=== PATIENT | male | born 2000 | race Hispanic/Latino ===

== ENCOUNTER 2022-03-03 14:38 | Emergency (ER) | payer OTHER, SELFPAY ==
[~2022-03-03 14:38] MED LIST: Iopamidol 370 76% 100 ML VIAL ONE
[2022-03-03] MEDS ORDERED: Ondansetron PF 4 MG/2 ML Vial ONE (14:59)
[2022-03-03] MEDS ORDERED: Morphine 4 MG/ML VIAL ONE (14:59)
[2022-03-03 15:04] LABS: #Basophils 0.1 thou/uL (0.0-0.2); #Eosinphils 0.2 thou/uL (0.0-0.7); #Lymphocytes 2.1 thou/uL (1.20-3.40); #Monocytes 0.5 thou/uL (0.11-0.59); #Neutrophils 2.8 thou/uL (1.40-6.50); %Basophils 1.4 % (0.0-1.0); %Eosinophils 4.2 % (0.0-10.0); %Lymphocytes 36.5 % (21.0-51.0); %Monocytes 9.1 % (0.0-10.0); %Neutrophils 48.8 % (42.0-75.0); Hemoglobin 14.3 g/dL (14.0-18.0); Mean Corpuscular HGB CONC 31.1 g/dL (32.0-36.0); Mean Corpuscular Volume 93.2 fL (78.0-98.0); Mean Platelet Volume 7.7 fL (7.4-10.4); Platelet Count 218 thou/uL (130-400); RBC Distribution Width 11.3 % (11.5-14.5); Red Blood Cell (RBC) Count 4.94 mill/uL (4.70-6.10); White Blood Cell (WBC) Count 5.7 thou/uL (4.8-10.8)
[2022-03-03 15:10] LABS: INR-International Normal Ratio 1.1; Prothrombin Time 14.4 sec (12.0-14.7)
[2022-03-03 15:11] LABS: PTT 32.3 sec (22.9-36.1)
[2022-03-03 15:20] LABS: ALT (SGPT) 16 U/L (8-55); AST (SGOT) 17 U/L (5-34); Albumin 4.6 g/dL (3.5-5.0); Alcohol Less than 10 mg/dL (Less than 10); Alkaline Phosphatase 74 U/L (40-110); Anion Gap 14 mmol/L (10-20); BUN (Urea Nitrogen) 15 mg/dL (8.9-20.6); Calc. Creatinine Clearance 0 mL/min (70-130); Calcium 9.3 mg/dL (7.8-10.44); Carbon Dioxide 25 mmol/L (22-29); Chloride 106 mmol/L (98-107); Globulin 2.4 g/dL (2.4-3.5); Glucose 97 mg/dL (70-105); Lipase 34 U/L (8-78); Potassium 3.8 mmol/L (3.5-5.1); Sodium 141 mmol/L (136-145)
[2022-03-03] MEDS ORDERED: Sodium Chloride 0.9% 1,000 ML ONE (15:22)
[2022-03-03 16:23] LABS: Bilirubin Negative (Negative); Blood, Urine Negative (Negative); Clarity Clear (Clear); Glucose, Urine (Dipstick) Negative (Negative); Ketone, Urine Negative (Negative); Leukocyte Negative (Negative); Nitrite Negative (Negative); Protein, Urine (Dipstick) Negative (Neg-Trace); Urobilinogen 0.2 mg/dL (Less than 2); pH, Urine 5.5 (5.0-9.0)
== END 2022-03-03 16:51 | disposition home or self-care (01) ==
LOC: NAV ERS 14:38
DX: S13.4XXA Sprain of ligaments of cervical spine, initial encounter (principal); S39.012A Strain of muscle, fascia and tendon of lower back, initial encounter; S29.012A Strain of muscle and tendon of back wall of thorax, initial encounter; M25.562 Pain in left knee; M25.532 Pain in left wrist; V44.5XXA Car driver injured in collision with heavy transport vehicle or bus in traffic accident, initial encounter
CPT/HCPCS: 36415; 70450; 71260; 72125; 74177; 80053; 80307; 81003; 83605; 83690; 85025; 85610; 85730; 94760; G0390; J2270; J2405; J7050; Q9967

== ENCOUNTER 2023-05-18 13:18 | Emergency (ER) | payer OTHER, SELFPAY ==
[2023-05-18] MEDS ORDERED: Ondansetron PF 4 MG/2 ML Vial ONE (13:28)
[2023-05-18] MEDS ORDERED: Morphine 4 MG/ML VIAL ONE (13:28)
[2023-05-18] MEDS ORDERED: Morphine 2 MG/ML VIAL ONE (13:28)
[2023-05-18] MEDS ORDERED: Sodium Chloride 0.9% 1,000 ML ONE (13:30)
[2023-05-18 13:47] LABS: #Basophils 0.1 thou/uL (0.0-0.2); #Eosinphils 0.3 thou/uL (0.0-0.7); #Lymphocytes 2.7 thou/uL (1.20-3.40); #Monocytes 0.7 thou/uL (0.11-0.59); #Neutrophils 2.8 thou/uL (1.40-6.50); %Basophils 1.2 % (0.0-1.0); %Eosinophils 5.1 % (0.0-10.0); %Lymphocytes 40.6 % (21.0-51.0); %Monocytes 10.8 % (0.0-10.0); %Neutrophils 42.3 % (42.0-75.0); Hematocrit 48.2 % (42.0-52.0); Hemoglobin 15.5 g/dL (14.0-18.0); Mean Corpuscular HGB CONC 32.2 g/dL (32.0-36.0); Mean Corpuscular Hemoglobin 29.4 pg (27.0-31.0); Mean Corpuscular Volume 91.3 fl (78.0-98.0); Mean Platelet Volume 7.7 fL (7.4-10.4); Platelet Count 216 10x3/uL (130-400); Red Blood Cell (RBC) Count 5.28 mill/uL (4.70-6.10); White Blood Cell (WBC) Count 6.7 10x3/uL (4.8-10.8)
[2023-05-18 13:50] LABS: INR-International Normal Ratio 1.1; Prothrombin Time 14.4 sec (12.0-14.7)
[2023-05-18 13:51] LABS: PTT 30.1 sec (22.9-36.1)
[2023-05-18 13:58] LABS: ALT (SGPT) 15 U/L (8-55); AST (SGOT) 21 U/L (5-34); Albumin 4.4 g/dL (3.5-5.0); Alkaline Phosphatase 73 U/L (40-110); Anion Gap 14 mmol/L (10-20); BUN (Urea Nitrogen) 15 mg/dL (8.9-20.6); Bilirubin, Total 1.1 mg/dL (0.2-1.2); Calc. Creatinine Clearance 0 mL/min (70-130); Calcium 9.2 mg/dL (7.8-10.44); Carbon Dioxide 24 mmol/L (22-29); Chloride 106 mmol/L (98-107); Estimated GFR 117; Globulin 2.8 g/dL (2.4-3.5); Glucose 66 mg/dL (70-105); Magnesium 1.9 mg/dL (1.6-2.6); Potassium 3.9 mmol/L (3.5-5.1); Protein, Total 7.2 g/dL (6.0-8.3); Sodium 140 mmol/L (136-145)
[2023-05-18] MEDS ORDERED: ANTIVENIN,CROTALIDAE (ANAVIP) 1 EACH VIAL ONE ×2 (13:59→14:01)
[2023-05-18] MEDS ORDERED: Diazepam 10 MG/2 ML SYRINGE ONE (14:20)
[2023-05-18] MEDS ORDERED: Diazepam 10 MG/2 ML SYRINGE IVP SCH (14:30)
[2023-05-18] MEDS ORDERED: HYDROmorphone 0.5 MG/0.5 ML SYRINGE ONE (14:59)
[2023-05-18 15:52] LABS: Bilirubin Negative (Negative); Blood, Urine Negative (Negative); Clarity Clear (Clear); Glucose, Urine (Dipstick) Negative (Negative); Ketone, Urine Negative (Negative); Leukocyte Negative (Negative); Nitrite Negative (Negative); Protein, Urine (Dipstick) Negative (Neg-Trace); Urobilinogen 0.2 mg/dL (Less than 2)
[2023-05-18 15:54] LABS: CAUTI Indications for Culture Dysuria,urgency,freq; Squamous Epithelial 0-3 HPF (0-3); WBC/HPF 0-3 HPF (0-3)
[2023-05-18 15:55] LABS: Urine Culture Reflex No No
== END 2023-05-18 15:50 | disposition home or self-care (01) ==
LOC: NAV ERS 13:18
DX: S39.012A Strain of muscle, fascia and tendon of lower back, initial encounter (principal); E16.2 Hypoglycemia, unspecified; V80.010A Animal-rider injured by fall from or being thrown from horse in noncollision accident, initial encounter; Y93.39 Activity, other involving climbing, rappelling and jumping off
CPT/HCPCS: 70450; 71260; 72125; 74177; 80053; 81001; 83735; 85025; 85610; 85730; 96361; 96374; 96375; J0841; J1170; J2270; J2272; J2405; J3360; J7050; Q9967

== ENCOUNTER 2024-12-23 20:19 | Emergency (ER) | payer SELFPAY ==
[2024-12-23] MEDS ORDERED: Ibuprofen 200 MG TAB ONE (20:41)
[2024-12-23] MEDS ORDERED: Ondansetron PF 4 MG/2 ML Vial ONE (20:42)
[2024-12-23] MEDS ORDERED: Pantoprazole 40 MG VIAL ONE (20:42)
[2024-12-23] MEDS ORDERED: Morphine 2 MG/ML VIAL ONE (20:42)
[2024-12-23 20:57] LABS: ALT (SGPT) 12 U/L (Less than 45); AST (SGOT) 14 U/L (11-34); Albumin 4.9 g/dL (3.1-4.5); Alkaline Phosphatase 70 U/L (40-110); Anion Gap 16 mmol/L (10-20); BUN (Urea Nitrogen) 10 mg/dL (8.9-20.6); Bilirubin, Total 1.4 mg/dL (0.3-1.2); Calc. Creatinine Clearance 0 mL/min (70-130); Calcium 9.6 mg/dL (7.8-10.44); Carbon Dioxide 23 mmol/L (22-29); Chloride 103 mmol/L (98-107); Estimated GFR 101; Globulin 2.7 g/dL (2.4-3.5); Glucose 109 mg/dL (70-105); Lipase 14 U/L (8-78); Potassium 3.7 mmol/L (3.5-5.1); Protein, Total 7.6 g/dL (6.0-8.3); Sodium 138 mmol/L (136-145)
[2024-12-23 20:58] LABS: #Basophils 0.1 thou/uL (0.0-0.2); #Lymphocytes 1.9 thou/uL (1.20-3.40); #Monocytes 0.9 thou/uL (0.11-0.59); #Neutrophils 10.2 thou/uL (1.40-6.50); %Basophils 0.9 % (0.0-1.0); %Eosinophils 0.2 % (0.0-10.0); %Lymphocytes 14.2 % (21.0-51.0); %Monocytes 6.9 % (0.0-10.0); %Neutrophils 77.7 % (42.0-75.0); Hematocrit 48.4 % (42.0-52.0); Hemoglobin 15.7 g/dL (14.0-18.0); Mean Corpuscular HGB CONC 32.4 g/dL (32.0-36.0); Mean Corpuscular Volume 86.5 fl (78.0-98.0); Mean Platelet Volume 6.7 fL (7.4-10.4); Platelet Count 205 10x3/uL (130-400); RBC Distribution Width 11.1 % (11.5-14.5); Troponin I Less than 0.010 ng/mL (< 0.028); White Blood Cell (WBC) Count 13.1 10x3/uL (4.8-10.8)
[2024-12-23] MEDS ORDERED: Clindamycin/D5W 900 mg/50 ml Premix Bag ONE (21:09)
[2024-12-23] MEDS ORDERED: Sodium Chloride 0.9% 1,000 ML ONE (21:09)
[2024-12-23] MEDS ORDERED: Morphine 4 MG/ML VIAL ONE (21:56)
[2024-12-23 22:07] LABS: Bilirubin Negative (Negative); Blood, Urine Trace (Negative); Clarity Clear (Clear); Glucose, Urine (Dipstick) Negative (Negative); Ketone, Urine Negative (Negative); Leukocyte Negative (Negative); Nitrite Negative (Negative); Protein, Urine (Dipstick) Negative (Neg-Trace); Specific Gravity, Urine Less/Equal 1.005 (1.005-1.030); Urobilinogen 0.2 mg/dL (Less than 2); pH, Urine 6.5 (5.0-9.0)
[2024-12-23 22:11] LABS: Bacteria/HPF None Seen HPF (None Seen); CAUTI Indications for Culture Fever or rigors; RBC/HPF 0-3 HPF (0-3); Squamous Epithelial None Seen HPF (0-3); WBC/HPF None Seen HPF (0-3)
[2024-12-23 22:13] LABS: Urine Culture Reflex No No
[2024-12-23 22:15] LABS: Amphetamine Negative (Negative); Barbiturates Screen Negative (Negative); Benzodiazepine Screen Negative (Negative); Cocaine Metabolite Screen Negative (Negative); Methadone Negative (Negative); Methamphetamine Negative (Negative); Opiate Screen PRELIM POSITIVE (Negative); Oxycodone Screen Negative (Negative); Phencyclidine (PCP) Negative (Negative); THC/Cannabinoid Screen Negative (Negative); Tricyclic Screen Negative (Negative)
[2024-12-23] MEDS ORDERED: Sodium Chloride 0.9% 100 ML ONE (22:17)
[2024-12-23] MEDS ORDERED: Sodium Chloride 0.9% 500 ML ONE (22:20)
[2024-12-23] MEDS ORDERED: Vancomycin 1 GM VIAL ONE (22:20)
== END 2024-12-23 23:31 | disposition short-term general hospital (02) ==
LOC: NAV ERS 20:19
DX: L02.211 Cutaneous abscess of abdominal wall (principal)
CPT/HCPCS: 71045; 74177; 80053; 80306; 81001; 83605; 83690; 84443; 84484; 85025; 87040; 87070; 87077; 87186; 87205; 87428; 93005; 96365; 96367; 96375; 96376; J2270; J2272; J2405; J2470; J3370; J3490; J7030; Q9967